=== PATIENT | male | born 1975 | race Caucasian/White ===

== ENCOUNTER 2022-04-22 16:22 | Emergency (ER) | payer OTHER, MEDICAID ==
--- NOTE | 2022-04-22 16:21 | ED Physician Documentation ---
History of Present Illness - Stated complaint Stated Complaint: MHE - Chief complaint Chief Complaint: MHE - History of Present Illness Timing: How many days ago (4) - Additonal information Additional information: 46-year-old male with history of depression, amphetamine use disorder presents by law enforcement for mental health evaluation. Patient states that he moved up to [facility] 4 months ago and has been unable to afford any of his medication due to insurance changes. He states that for the last few weeks he has noticed gradually worsening depression with associated suicidal thoughts. Patient states that he has tried to kill himself in the past by overdosing on pills. Law enforcement stated that he took out razors and threatened to cut his wrists, he apparently also asked law enforcement to shoot him to kill him. Endorsed methamphetamine use last night. Denies other substance uses. Review of Systems Ten Systems: 10 systems reviewed and negative Constitutional: denies: Fever, Chills, Myalgias, Fatigue, Weight Loss, Sweats, Reviewed and negative, Other Eyes: denies: Loss of vision, Decreased vision, Photophobia, Discharge, Irritation, Reviewed and negative, Other Ears: denies: Loss of hearing, Ear pain, Drainage/discharge, Tinnitus/ringing, Foreign body, Reviewed and negative, Other Nose: denies: Rhinorrhea / runny nose, Congestion, Epistaxis, Sinus pressure / pain, Foreign Body, Reviewed and negative, Other Throat: denies: Dental pain / toothache, Oral lesions / sores, Sore throat, Swollen tonsils, Swallowed foreign body, Reviewed and negative, Other Cardiac: denies: Chest pain / pressure, Palpitations, Pedal edema, Calf pain, Reviewed and negative, Other Respiratory: denies: Dyspnea, Cough, Hemoptysis, Wheezing, Reviewed and negative, Other GI: denies: Abdominal Pain, Abdominal Swelling, Nausea, Vomiting, Constipation, Diarrhea, Hematemesis, Bloody / black stool, Reviewed and negative, Other : denies: Dysuria, Frequency, Hesitancy, Unable to Void, Incontinent, Hematuria, Discharge, LMP, Vaginal bleeding, Irregular menses, Missed period, Now EGA, Control, Hysterectomy, Testicular pain, Testicular mass, Meneses Problem, Reviewed and negative, Other Skin: denies: Rash, Lesions, Abrasion (s), Laceration (s), Bite / sting, Reviewed and negative, Other Musculoskeletal: denies: Neck pain, Back pain, Extremity pain, Joint pain, Extremity swelling, Joint swelling, Pain with weight bearing, Reviewed and negative, Other Psychiatric: reports: Depressed, Suicidal. denies: Homicidal, Hallucinations, Delusions, Anxiety, Insomnia PD PAST MEDICAL HISTORY - Past Medical History Psych: Depression - Allergies Allergies/Adverse Reactions: Allergies Allergy/AdvReac Type Severity Reaction Status Date / Time bee venom protein (honey bee) Allergy Unknown Verified 04/22/22 16:25 escitalopram [From Lexapro] Allergy Itching Verified 02/10/22 15:27 metronidazole [From Flagyl] Allergy Unknown Verified 04/22/22 16:25 morphine Allergy Anaphylaxis Verified 02/10/22 15:27 Sulfa (Sulfonamide Allergy Unknown Verified 04/22/22 16:25 Antibiotics) - Social History Does the pt have substance abuse?: Yes Substance Use and Type: Meth PD ED PE NORMAL - General General: Alert and oriented X 3, Well developed/nourished - HEENT HEENT: Atraumatic, PERRL, EOMI, Ears normal - Neck Neck: Supple, no meningeal sign, No bony TTP, No JVD, No bruit - Cardiac Cardiac: RRR, No murmur, No gallop - Abdomen Abdomen: Soft, Non tender, Non distended - Male Male : Deferred - Rectal Rectal: Deferred - Back Back: No CVA TTP, No spinal TTP - Derm Derm: Normal color, Warm and dry, No rash - Extremities Extremities: No deformity, No tenderness to palpate, Normal ROM s pain, No edema, No calf tenderness / cord - Neuro Neuro: Alert and oriented X 3, tour consultant 2-12 intact, No motor deficit, No sensory deficit, Normal speech - Psych Psych: Other - Free text exam Free text exam: Depressed affect, sad mood, endorsing suicidal ideation with plan, denies homicidal ideation, does not respond to internal stimuli Results - Vitals Vitals: Vital Signs - 24 hr 04/22/22 16:21 Temperature 37.4 C Heart Rate 78 Respiratory 14 Rate Blood Pressure 147/88 H O2 Saturation 99 Oxygen O2 Source Room air - Labs Labs: Laboratory Tests 04/22/22 04/22/22 04/22/22 16:31 16:31 16:31 WBC 10.7 RBC 5.50 Hgb 16.4 Hct 48.6 MCV 88.4 MCH 29.8 MCHC 33.7 RDW 13.2 Plt Count 318 MPV 8.8 Neut # (Auto) 7.4 H Lymph # (Auto) 2.5 [place] # (Auto) 0.5 Eos # (Auto) 0.1 Baso # (Auto) 0.1 Absolute Nucleated RBC 0.00 Nucleated RBC % 0.0 Sodium 135 Potassium 3.6 Chloride 102 Carbon Dioxide 23 Anion Gap 10.0 BUN 11 Creatinine 0.9 Estimated GFR (MDRD) 90 Glucose 95 Calcium 9.8 Total Bilirubin 0.6 AST 21 ALT 20 Alkaline Phosphatase 76 Total Protein 8.1 Albumin 4.3 Globulin 3.8 Albumin/Globulin Ratio 1.1 Lipase 28 TSH 1.23 Urine Color Urine Clarity Urine pH Ur Specific [place] Urine Protein Urine Glucose (UA) Urine Ketones Urine Occult Blood Urine Nitrite Urine Bilirubin Urine Urobilinogen Ur Leukocyte Esterase Ur Microscopic Review Urine Culture Comments Salicylates < 6.0 Urine Opiates Screen Ur Oxycodone Screen Urine Methadone Screen Ur Propoxyphene Screen Acetaminophen < 10 L Ur Barbiturates Screen Ur Tricyclics Screen Ur Phencyclidine Scrn Ur Amphetamine Screen U Methamphetamines Scrn U Benzodiazepines Scrn Urine Cocaine Screen U Cannabinoids Screen Ethyl Alcohol < 5.0 04/22/22 17:25 WBC RBC Hgb Hct MCV MCH MCHC RDW Plt Count MPV Neut # (Auto) Lymph # (Auto) Nicol[place] # (Auto) Eos # (Auto) Baso # (Auto) Absolute Nucleated RBC Nucleated RBC % Sodium Potassium Chloride Carbon Dioxide Anion Gap BUN Creatinine Estimated GFR (MDRD) Glucose Calcium Total Bilirubin AST ALT Alkaline Phosphatase Total Protein Albumin Globulin Albumin/Globulin Ratio Lipase TSH Urine Color YELLOW Urine Clarity CLEAR Urine pH 7.0 Ur Specific [place] 1.010 Urine Protein NEGATIVE Urine Glucose (UA) NEGATIVE Urine Ketones NEGATIVE Urine Occult Blood NEGATIVE Urine Nitrite NEGATIVE Urine Bilirubin NEGATIVE Urine Urobilinogen 0.2 (NORMAL) Ur Leukocyte Esterase NEGATIVE Ur Microscopic Review NOT INDICATED Urine Culture Comments NOT INDICATED Salicylates Urine Opiates Screen NEGATIVE Ur Oxycodone Screen NEGATIVE Urine Methadone Screen NEGATIVE Ur Propoxyphene Screen NEGATIVE Acetaminophen Ur Barbiturates Screen NEGATIVE Ur Tricyclics Screen NEGATIVE Ur Phencyclidine Scrn NEGATIVE Ur Amphetamine Screen POSITIVE H U Methamphetamines Scrn POSITIVE H U Benzodiazepines Scrn NEGATIVE Urine Cocaine Screen NEGATIVE U Cannabinoids Screen NEGATIVE Ethyl Alcohol PD MEDICAL DECISION MAKING - ED course ED course: Patient presenting by law enforcement for suicidal ideation with plan. Active substance use in the last 24 hours. Currently calm and cooperative. Will obtain medical clearance labs and plan to consult DCR Departure - Departure Clinical Impression: Depression, Suicidal ideation Condition: Good
[2022-04-22 16:36] LABS: BASOPHILS # (AUTO) 0.1 10^3/uL (0.0-0.1); BASOPHILS % (AUTO) 0.5 %; EOSINOPHILS # (AUTO) 0.1 10^3/uL (0.0-0.7); EOSINOPHILS % (AUTO) 0.8 %; HCT - HEMATOCRIT 48.6 % (42.0-52.0); HGB - HEMOGLOBIN 16.4 g/dL (14.0-18.0); LYMPHOCYTES # (AUTO) 2.5 10^3/uL (1.5-3.5); LYMPHOCYTES % (AUTO) 23.7 %; MEAN CORPUSCULAR HEMOGLOBIN 29.8 pg (27.0-31.0); MEAN CORPUSCULAR HGB CONC 33.7 g/dL (32.0-36.0); MEAN CORPUSCULAR VOLUME 88.4 fL (80.0-94.0); MEAN PLATELET VOLUME 8.8 fL (7.4-11.4); MONOCYTES # (AUTO) 0.5 10^3/uL (0.0-1.0); MONOCYTES % (AUTO) 5.1 %; NEUTROPHILS # (AUTO) 7.4 10^3/uL (1.5-6.6); NEUTROPHILS % (AUTO) 69.6 %; PLT - PLATELET COUNT 318 10^3/uL (130-450); RED CELL DISTRIBUTION WIDTH 13.2 % (12.0-15.0); WHITE BLOOD COUNT 10.7 x10^3/uL (4.8-10.8)
[2022-04-22 16:53] LABS: ACETAMINOPHEN < 10 ug/mL (10-30); ALBUMIN 4.3 g/dL (3.2-5.5); ALBUMIN/GLOBULIN RATIO 1.1 (1.0-2.2); ALKALINE PHOSPHATASE 76 IU/L (42-121); ALT ALANINE AMINOTRANSFERASE 20 IU/L (10-60); AST ASPARTATE AMINOTRANSFERASE 21 IU/L (10-42); BILIRUBIN,TOTAL 0.6 mg/dL (0.2-1.0); BUN - BLOOD UREA NITROGEN 11 mg/dL (6-20); CALCIUM 9.8 mg/dL (8.5-10.3); CARBON DIOXIDE - CO2 23 mmol/L (21-32); CHLORIDE 102 mmol/L (101-111); CREATININE 0.9 mg/dL (0.6-1.2); ETOH - ETHANOL < 5.0 mg/dL; GFR - MDRD 90 (>89); GLUCOSE 95 mg/dL (70-100); LIPASE 28 U/L (22-51); POTASSIUM 3.6 mmol/L (3.5-5.0); SALICYLATE < 6.0 mg/dL; SODIUM 135 mmol/L (135-145); TOTAL PROTEIN 8.1 g/dL (6.7-8.2)
[2022-04-22 17:36] LABS: MUDS CUTOFF CONCENTRATIONS CUTOFF CONC BELOW:
[2022-04-22 17:40] LABS: BILIRUBIN,URINE NEGATIVE (NEGATIVE); CLARITY,URINE CLEAR (CLEAR); GLUCOSE, URINE (UA) NEGATIVE (NEGATIVE); KETONES,URINE (UA) NEGATIVE (NEGATIVE); LEUKOCYTE ESTERASE, URINE NEGATIVE (NEGATIVE); NITRITE,URINE NEGATIVE (NEGATIVE); OCCULT BLOOD,URINE NEGATIVE (NEGATIVE); PROTEIN,URINE NEGATIVE (NEGATIVE); UROBILINOGEN,URINE 0.2 (NORMAL) E.U./dL (NORMAL)
[2022-04-22 17:51] LABS: AMPHETAMINE SCREEN,URINE POSITIVE (NEGATIVE); BARBITURATE SCREEN,UR NEGATIVE (NEGATIVE); BENZODIAZEPINES SCREEN, URINE NEGATIVE (NEGATIVE); COCAINE SCREEN URINE NEGATIVE (NEGATIVE); METHADONE SCREEN, URINE NEGATIVE (NEGATIVE); METHAMPHETAMINES SCREEN, URINE POSITIVE (NEGATIVE); OPIATE SCREEN, URINE NEGATIVE (NEGATIVE); OXYCODONE SCREEN, URINE NEGATIVE (NEGATIVE); PROPOXYPHENE SCREEN, URINE NEGATIVE (NEGATIVE); THC CANNABINOID SCREEN, URINE NEGATIVE (NEGATIVE); TRICYCLIC ANTIDEPRESSANT,URINE NEGATIVE (NEGATIVE)
[2022-04-22] MEDS ORDERED: traZODone 50 MG TABLET PO STA (22:19)
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
[2022-04-23] MEDS ORDERED: CITALOPRAM 10 MG TABLET PO SCH ×2 (09:00)
[2022-04-23] MEDS ORDERED: DIVALPROEX ER 250 MG TABLET PO SCH (09:00)
--- NOTE | 2022-04-23 09:14 | ED Physician Documentation ---
ED Addendum - Addendum Addendum: 04/23/22 09:14 Seen by social work, he is no longer suicidal and request discharge. He plans to stop using methamphetamines. Disposition: Discharged home Condition: Stable Diagnosis: 1. Depression 2. Methamphetamine abuse
[2022-04-23 09:26] VITALS: BP 135/78
== END 2022-04-23 09:25 | disposition home or self-care (01) ==
LOC: EDBD → ED 16:22
DX: U07.1 COVID-19 (principal); F25.1 Schizoaffective disorder, depressive type; R45.851 Suicidal ideations; Z91.138 Patient's unintentional underdosing of medication regimen for other reason; F15.10 Other stimulant abuse, uncomplicated
CPT/HCPCS: 36415; 80053; 80306; 80307; 80320; 80329; 81003; 83690; 84443; 85025; 87635; 99281; 99283; A9270; G0425; Q3014; 81001; 87086